=== PATIENT | male | born 2000 | race American Indian/Alaskan Native ===

== ENCOUNTER 2022-01-06 22:30 | Emergency (ER) | payer SELFPAY ==
--- NOTE | 2022-01-07 01:54 | Emergency Department Report ---
ED General Adult HPI - General Chief complaint: Dental/Oral Stated complaint: TOOTHACHE,LT SIDE FACE SWOLLEN Source: patient Mode of arrival: Ambulatory Limitations: No Limitations - History of Present Illness Initial comments: Patient is a 21-year-old -[place] male with no past medical history who presents to the ED with complaint of acute onset persistent left mandibular premolar molar toothache with swollen gums and pain for the last 2 days, worse in the last 12 hours. Patient states that he has an appointment with his dentist in 3 days time but has not been able to sleep because of worsening pain. Patient denies fever, chills, nausea, vomiting, dizziness, syncope, chest pain or shortness of breath, sore throat, traumatic injury, change in vision or headache. MD Complaint: left mandibular premolar and molar toothache; swollen gums -: Sudden, week(s) (1) Location: mouth Radiation: non-radiation Severity scale (0 -10): 7 Quality: aching, sharp Consistency: constant Improves with: none Worsens with: eating Associated Symptoms: denies other symptoms. denies: confusion, chest pain, cough, diaphoresis, fever/chills, headaches, loss of appetite, rash, shortness of breath, syncope, weakness Treatments Prior to Arrival: none - Related Data Previous Rx's Medication Instructions Recorded Last Taken Type Clindamycin [Clindamycin CAP] 300 mg PO Q8H #30 cap 01/07/22 Unknown Rx Ketorolac [Toradol] 10 mg PO Q6H PRN #20 tab 01/07/22 Unknown Rx traMADoL [Ultram] 50 mg PO Q6HR PRN #12 tablet 01/07/22 Unknown Rx Allergies Allergy/AdvReac Type Severity Reaction Status Date / Time No Known Allergies Allergy Verified 01/07/22 00:45 ED Review of Systems ROS: Stated complaint: TOOTHACHE,LT SIDE FACE SWOLLEN Other details as noted in HPI Constitutional: denies: chills, fever Eyes: denies: eye pain, eye discharge, vision change ENT: dental pain (left mandibular premolar and molar pain and swollen painful gums). denies: ear pain, throat pain, congestion Respiratory: denies: cough, shortness of breath, wheezing Cardiovascular: denies: chest pain, palpitations Endocrine: no symptoms reported Gastrointestinal: denies: abdominal pain, nausea, vomiting, diarrhea Genitourinary: denies: urgency, dysuria Musculoskeletal: denies: back pain, joint swelling, arthralgia Skin: denies: rash, lesions Neurological: denies: headache, weakness, paresthesias Psychiatric: denies: anxiety, depression Hematological/Lymphatic: denies: easy bleeding, easy bruising ED Past Medical Hx - Past Medical History Previous Medical History?: Yes Hx Asthma: Yes - Surgical History Past Surgical History?: Yes - Medications Home Medications: Home Medications Medication Instructions Recorded Confirmed Last Taken Type Clindamycin [Clindamycin CAP] 300 mg PO Q8H #30 cap 01/07/22 Unknown Rx Ketorolac [Toradol] 10 mg PO Q6H PRN #20 tab 01/07/22 Unknown Rx traMADoL [Ultram] 50 mg PO Q6HR PRN #12 tablet 01/07/22 Unknown Rx ED Physical Exam - General Limitations: No Limitations General appearance: alert, in no apparent distress - Head Head exam: Present: atraumatic, normocephalic, normal inspection - Eye Eye exam: Present: normal appearance, PERRL, EOMI Pupils: Present: normal accommodation - ENT ENT exam: Present: mucous membranes moist, TM's normal bilaterally, normal external ear exam, other (Swelling, tender left mandibular gingiva; palpable left mandibular premolar molar teeth tenderness) - Neck Neck exam: Present: normal inspection, full ROM. Absent: tenderness - Respiratory Respiratory exam: Present: normal lung sounds bilaterally. Absent: respiratory distress, wheezes, rales, chest wall tenderness, accessory muscle use, decreased breath sounds, prolonged expiratory - Cardiovascular Cardiovascular Exam: Present: regular rate, normal rhythm, normal heart sounds. Absent: systolic murmur, diastolic murmur, rubs, gallop - GI/Abdominal GI/Abdominal exam: Present: soft, normal bowel sounds. Absent: tenderness, guarding, rebound, hyperactive bowel sounds, hypoactive bowel sounds, organomegaly - Extremities Exam Extremities exam: Present: normal inspection, full ROM, normal capillary refill. Absent: tenderness - Back Exam Back exam: Present: normal inspection, full ROM. Absent: tenderness, CVA tenderness (R), CVA tenderness (L), muscle spasm, paraspinal tenderness, vertebral tenderness - Neurological Exam Neurological exam: Present: alert, oriented X3, CN II-XII intact, normal gait, reflexes normal - Psychiatric Psychiatric exam: Present: normal affect, normal mood - Skin Skin exam: Present: warm, dry, intact, normal color. Absent: rash ED Course Vital Signs 01/07/22 01/07/22 01/07/22 00:43 02:24 02:43 Temperature 97.8 F Pulse Rate 85 Respiratory 17 16 14 Rate Blood Pressure 137/82 [Right] O2 Sat by Pulse 99 Oximetry ED Medical Decision Making - Medical Decision Making This is a 21-year-old -[place] male with no past medical history who presents to the ED with complaint of acute onset persistent left mandibular premolar molar toothache with swollen gums and pain for the last 2 days, worse in the last 12 hours. Patient states that he has an appointment with his dentist in 3 days time but has not been able to sleep because of worsening pain. In the ED, patient is alert and oriented x3 and is not in any distress. Patient was treated for pain in the ED and also given initial oral antibiotics. On reevaluation, patient's pain is well controlled medication. Patient was discharged home on pain medications and antibiotics and advised to follow-up with his primary care physician in 7 to 10 days for reevaluation or return to the ED immediately if symptoms get worse. - Differential Diagnosis dental abscess; gingivitis; dental caries Critical care attestation.: If time is entered above; I have spent that time in minutes in the direct care of this critically ill patient, excluding procedure time. ED Disposition Clinical Impression: Dental abscess, Dental caries, Acute gingivitis Disposition: 01 HOME / SELF CARE / HOMELESS Is pt being admited?: No Does the pt Need Aspirin: No Condition: Stable Instructions: Dental Abscess, [id number], Trench Mouth Additional Instructions: Take medication with food, drink plenty of fluids and follow-up with your dentist in 7 to 10 days for reevaluation. Return to the ED immediately if s ymptoms get worse. Prescriptions: Clindamycin [Clindamycin CAP] 300 mg PO Q8H #30 cap Ketorolac [Toradol] 10 mg PO Q6H PRN #20 tab PRN Reason: Pain traMADoL [Ultram] 50 mg PO Q6HR PRN #12 tablet PRN Reason: Pain Referrals: [facility] [Provider Group] - 3-5 Days [facility] [Outside] - 7-10 days Time of Disposition: 01:53 Print Language: KOSOVAN
[2022-01-07] MEDS ORDERED: AMOXICILLIN/K CLAV 875/125MG TAB PO ONE (02:10)
[2022-01-07] MEDS ORDERED: HYDROcodone/ACETAMINOPHEN 7.5-325MG TAB PO ONE (02:10)
[2022-01-07] MEDS ORDERED: IBUPROFEN 600 MG TAB PO ONE (02:10)
[2022-01-07] MEDS ORDERED: ONDANSETRON 4 MG ODT TAB PO ONE (02:11)
[2022-01-07 02:47] VITALS: BP 141/72
== END 2022-01-07 02:48 | disposition home or self-care (01) ==
LOC: ED 22:30
DX: K04.7 Periapical abscess without sinus (principal); K02.9 Dental caries, unspecified; K05.00 Acute gingivitis, plaque induced; J45.909 Unspecified asthma, uncomplicated; Z79.899 Other long term (current) drug therapy
CPT/HCPCS: 99282; J3490; Q0162